=== PATIENT | male | born 1950 | race Caucasian/White ===

== ENCOUNTER 2021-06-11 09:19 | Day surgery (SDC) | payer MEDICARE, OTHER ==
[2021-06-11] MEDS: Lactated Ringers 1,000 ML IV SCH (09:59)
[2021-06-11] MEDS ORDERED: fentaNYL 100 MCG/2 ML SDV ONE (10:25)
[2021-06-11] MEDS ORDERED: Propofol 200 MG/20 ML SDV ONE ×2 (10:25→11:22)
[2021-06-11 12:09] VITALS: BP 122/88; PULSE 83
== END 2021-06-11 12:30 | disposition home or self-care (01) ==
LOC: VM.SDS 09:19
PROVIDERS: ATTEND Surgery
DX: Z12.11 Encounter for screening for malignant neoplasm of colon (principal); K21.9 Gastro-esophageal reflux disease without esophagitis; Z86.010 Personal history of colon polyps; Z79.899 Other long term (current) drug therapy; Z88.1 Allergy status to other antibiotic agents; Z98.890 Other specified postprocedural states
CPT/HCPCS: 00811; J2704; J3010; J7120